=== PATIENT | male | born 1975 | race Caucasian/White ===

== ENCOUNTER 2023-02-10 17:20 | Emergency (ER) | payer BC, SELFPAY ==
--- NOTE | ~2023-02-10 | XR_ITS ---
EXAMINATION: XR wrist LT min 3V DATE: 02/10/2023 18:07 INDICATION: Left wrist deformity. Fall. TECHNIQUE: 3 views of left wrist were obtained. COMPARISON: None. FINDINGS: There is a comminuted fracture of distal radius. It is not clear if there is involvement of the distal articular surface. The main distal fracture fragment demonstrates impaction, 9 mm dorsal displacement, and dorsal angulation. There is 46 degrees dorsal tilt of the distal articular surface. Ulnar styloid is intact. 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 IMPRESSION: 1. Comminuted fracture of distal radius. Reviewed, dictated and finalized at location E. SSOR
[2023-02-10 17:22] VITALS: BP 159/83; PULSE 87; RESP 20; TEMP 36.3; O2SAT 95
--- NOTE | 2023-02-10 18:26 | ED.GENADULT ---
[facility] - General Adult General Chief complaint: Extremity Injury, Upper Stated complaint: LUE deformity Time Seen by Provider: 02/10/23 17:33 Source: patient Mode of arrival: ambulatory Limitations: no limitations History of Present Illness HPI narrative: This is a 47-year-old male who presents to the ED with chief complaint of a left wrist injury occurring just prior to arrival. Patient states that he was working on the yard when he was actually squirrel. This caused him to stumble backwards over something in the yard and he fell onto the outstretched left hand. Reports pain and deformity in the area. Denies numbness, weakness or any further site of pain or injury. Related Data Allergies Allergy/AdvReac Type Severity Reaction Status Date / Time latex Allergy Unknown Hives Verified 02/10/23 17:25 naproxen Allergy Unknown HIVES Verified 02/10/23 17:25 Review of Systems Review of Systems: All systems as dictated in [facility] Family History Family History (Updated 10/11/17 @ 14:00 by DOCTOR UNKNOWN) Father Family history of cardiovascular disease Social History Social History Smoking status: Never smoker Alcohol intake: current Exam Narrative: GENERAL: Well-appearing, well-nourished, and in no acute distress. HEAD: Normocephalic, atraumatic. EYES: PERRLA and EOMI. ENT: Nares clear, no rhinorrhea or epistaxis. Mucous membranes moist. Oropharynx without tonsillar hypertrophy exudate or other lesions. NECK: Supple. No adenopathy or masses. CHEST: No respiratory distress. Clear to auscultation. No wheezes rales or rhonchi HEART: Regular rate and rhythm. No murmur heard. Normal peripheral pulses. ABDOMEN: Soft, nontender, nondistended, normal active bowel sounds. MSK: Normal range of motion. No edema. SKIN: Warm, dry, no rash. NEURO: Alert and oriented x3. No focal deficits. PSYCH: Normal mood and affect. Course Vital Signs Vital signs: Vital Signs Temperature 97.3 F L 02/10/23 17:22 Pulse Rate 87 02/10/23 17:22 Respiratory Rate 20 02/10/23 17:22 Blood Pressure 159/83 H 02/10/23 17:22 Pulse Oximetry 95 02/10/23 17:22 Oxygen Delivery Room Air 02/10/23 17:22 Temperature 97.3 F L 02/10/23 17:22 Pulse Rate 87 02/10/23 17:22 Respiratory Rate 20 02/10/23 17:22 Blood Pressure 159/83 H 02/10/23 17:22 Pulse Oximetry 95 02/10/23 17:22 Oxygen Delivery Room Air 02/10/23 17:22 Procedures Orthopedic Fracture Reduction Fracture #1: Fracture Reduction date: 02/10/23 Fracture Reduction time: 18:00 Time Out Performed: Yes Side: left Fracture Reduction Location: radius Analgesia: hematoma block Pre-Procedure Neuro Vascular Exam: normal Technique: direct manipulation, traction/counter-traction and finger traps Post Reduction X-rays Demonstrate: other (unable to reduce) Post-reduction neuro exam: intact Post-reduction vascular exam: intact Splint Applied: Yes Patient Tolerated Procedure: well Orthopedic Splinting/Casting Injury #1: Splinting/Casting Date: 02/10/23 Splinting/Casting Time: 19:00 Side: left Upper Extremity Injury Location: wrist Upper Extremity Immobilizer: sugar tong splint Splint: customized in ED OCL: sugar tong Pre-Procedure Neuro Vascular Exam: normal Post-Procedure Neuro Vascular Exam: normal Medical Decision Making MDM Narrative Medical decision making narrative: This is a 47-year-old male who presents to the ED with chief complaint of left wrist injury. He comes to the department with left wrist deformity. Vitals are normal. Exam remarkable for the above. X-rays show comminuted fracture of distal radius. He has dorsal displacement and dorsal angulation. Hematoma block was performed with good effect. Attempted several times as long longitudinal traction and countertraction to reduce the wrist. Unsu
[2023-02-10] MEDS: HYDROcodone/acetaminophen (*CRX) 7.5-325 MG TABLET 1 TAB PO (19:01)
== END 2023-02-10 20:07 | disposition home or self-care (01) ==
PROVIDERS: Emergency Provider Physician Assistant
DX: S52.532A Colles' fracture of left radius, initial encounter for closed fracture (principal); W18.09XA Striking against other object with subsequent fall, initial encounter
CPT/HCPCS: 25600; 25605; 73110; 99285; A9270

== ENCOUNTER 2023-02-18 00:53 | Day surgery (SDC) | payer BC, SELFPAY ==
[2023-02-12 12:29] VITALS: BMI 29.1
--- NOTE | 2023-02-12 12:34 | PC.NURSE ---
Report to the Outpatient Waiting Room, entrance under the green pavilion located off [facility], at time 0900 on date 02/18/23. Planned Procedure Time: 1100. Time changes happen often and if your time is changed the preop area will call you the afternoon before. - You and your visitor will be asked to self-screen and do not enter if you have any COVID symptoms. - A mask is optional within the hospital at this time. Patients may have clear liquids (water, carbonated beverages, clear teas, apple juice) until 3 hours prior to surgery with a maximum of 20 ounces. - No food from midnight until time of surgery Take the following medications with a SIP of water the morning of surgery: PAIN PILL IF NEEDED DO NOT STOP ANY OF YOUR OTHER PRESCRIPTION MEDICATIONS PRIOR TO SURGERY ?EXCEPT THE FOLLOWING Medications to discontinue per physician: ADVIL Date to take last dose: NO MORE UNTIL AFTER SURGERY Please no make-up, nail chadian, hairspray, perfume, deodorant, or body powder the day of surgery. No jewelry (including any body piercings) or valuables the day of surgery, leave them at home. Please take a shower or bath the night before, or the morning of, surgery with an antibacterial soap. Wear comfortable, loose fitting clothing. - Jewelry must be removed prior to entering the operating room. Rings and piercings that are not removed may be cut off. - The hospital will not accept responsibility for valuables. - Please leave all valuables, including medications, at home the day of surgery. If you are going home after surgery, a licensed trolley coach driver must drive you home. - NO public transportation without another adult if you receive anesthesia. - We recommend that an adult stay with you for 24 hours following discharge. - We also recommend that you do not drive, make important decision, drink alcoholic beverages, or take any drugs that were not prescribed by your health care provider for at least 24 hours after your discharge time. Follow any additional instructions given to you from your surgeon. If you or anyone in your household have experienced Covid symptoms in the past week, please notify your surgeon or the nurse liaison at the phone number below for possible testing. Telephone instructions given to PT - BENITO HAGAN and asked if any additional questions and then verbalized understanding. Patient advised to call surgeon office or pre surgery nurse liaison [phone] if any additional questions.
[2023-02-18] VITALS (12 sets, daily range): BP systolic 114–161; BP diastolic 68–113; PULSE 60–83; RESP 12–19; TEMP 36.1–36.6; O2SAT 92–99
--- NOTE | ~2023-02-18 | XR_ITS ---
EXAMINATION: XR surgery orthopedic DATE: 02/18/2023 11:03 INDICATION: Distal left radius fracture. TECHNIQUE: 3 intraoperative fluoroscopic views of left wrist were obtained. I was not present. Fluoro scopy exposure time was 67 seconds. COMPARISON: Left wrist radiographs 02/10/2023 FINDINGS: There is a comminuted fracture of distal radius status post open reduction internal fixatio n with volar plate and screws. The main distal fracture fragment demonstrates near-anatomic alignment . IMPRESSION: 1. Comminuted fracture of distal left radius status post open reduction internal fixation. Reviewed, dictated and finalized at location A. TER MACHINE OPERATOR IMPRESSION: 1. Comminuted fracture of distal left radius status post open reduction interna l fixation.
--- NOTE | 2023-02-18 06:40 | WPDHPUPDATE1 ---
History and Physical Update Update Date/Time: 02/18/23 06:40 History and Physical has been reviewed, including an updated exam of the patient. There are NO changes in the patient's condition. Risks, benefits, and alternatives have been discussed and questions answered. Patient agrees to proceed with procedure.
[2023-02-18] MEDS: ACETAMINOPHEN 500 MG TABLET 1000 MG PO (08:19)
--- NOTE | 2023-02-18 08:23 | WPDANESEPPF ---
Anes - Initial Pre Proc Eval Procedure: Operation Date: 02/18/23 09:45 Proposed Procedures p Open Reduction Internal Fixation Left Wrist Fracture - Armando Alvarado MD s Left Carpal Tunnel Release - Armando Alvarado MD Date/Time: 02/18/23 08:23 Surgeon: Armando Alvarado MD Pre Op Diagnosis: left distal radius fx Patient Data Age: 48 Gender: M Height: 1.78 m Weight: 88.9 kg Last Vital Signs Temp 36.6 C 02/18/23 07:27 Pulse 81 02/18/23 07:27 Resp 18 02/18/23 07:27 BP 132/89 02/18/23 07:27 Pulse Ox 98 02/18/23 07:27 O2 Del Method Room Air 02/18/23 07:27 Allergies Allergy/AdvReac Type Severity Reaction Status Date / Time latex Allergy Unknown Hives Verified 02/12/23 12:28 naproxen Allergy Unknown HIVES Verified 02/12/23 12:28 Home Medications Medication Instructions Recorded Confirmed Type ibuprofen 200 mg tablet (Advil) 400 mg PO Q6H PRN Pain 02/12/23 02/12/23 History oxycodone-acetaminophen 5 mg-325 1 - 2 tablet PO Q4-6H PRN pain #40 02/17/23 Rx mg tablet (Percocet) tabs Patient hx anesthesia problems: none Family hx anesthesia problems: none Results Review: All pre-operative results and documents have been reviewed as part of the pre-operative evaluation. [facility] Past Medical History Medical History Strain of left biceps tendon Surgical History Surgical History History of repair of anterior cruciate ligament of left knee Family History Family History Father Family history of cardiovascular disease Social History Social History Smoking status: Never smoker Alcohol intake: current Drinks per week: 14 Alcohol use details: WEEKENDS Substance use: current Substance use type: marijuana Lack of Transportation: No Lack of Food: Never True Current Housing: I Have Housing Concerned About Future Housing: No Difficulty Paying Gas/Electric Bills: No Difficulty Paying for Meds: No Currently Unemployed: No Education: Trade/Vocational Certificate Difficulty w/ Childcare or Family Care: No Living arrangements: alone Spiritual care concerns: No Anes - Eval Final PreProcedure Day of Procedure 02/18/23 08:23 Patient weight: normal Heart: regular rate and rhythm Lungs: clear to auscultation Airway: Mallampati scale class II Neurological: alert and oriented Last oral intake: >/= 8 hours ASA classification: I Emergent: no Anesthetic plan: proceed Anesthesia type and monitoring: general LMA and standard monitoring Results Review: All pre-operative results and documents have been reviewed as part of the pre-operative evaluation. Informed Consent: The patient's anesthetic plan and its attendant risks and benefits were discussed with the patient/family/POA. Questions were solicited and answers provided to the satisfaction of the patient/family/POA.
[2023-02-18] MEDS: ceFAZolin 2 GM/D5W 50 ML 2 GM/50 ML BAG IVPB (09:43)
[2023-02-18] MEDS: BUPIVACAINE/EPINEPHRINE 0.5% 50 ML VIAL INFILTRATE (09:58)
--- NOTE | 2023-02-18 11:10 | W.PM.PROC2 ---
Procedure Note - Detailed Date of Procedure 02/18/23 Pre-op Diagnosis 1. Left distal radius extraarticular fracture 2. Carpal tunnel syndrome, left. Post-op Diagnosis Same Procedure Performed Left 1. Distal radius extraarticular fracture ORIF 2.Carpal tunnel release, left. Surgeon Armando Alvarado MD Anesthesia General Findings Excellent bone quality. Anatomic reduction. Standard volar plate. Description of Procedure Preoperative antibiotics were given. A general anesthetic was administered. The hand was prepped and draped in the usual sterile fashion with a well-padded tourniquet. The limb was exsanguinated and the tourniquet inflated to 250 millimeters of mercury. 6ML 0.5% Marcaine with epinephrine was injected along the incision line and at the distal forearm. A longitudinal incision was created over the flexor carpi radialis tendon. Dissection was brought down through the sheath. The pronator quadratus was identified and released off of the radius. 7 pounds of finger trap traction applied. The fracture was carefully exposed and cleared of debris. Reduction was obtained with traction and manipulation. Fluoroscopy was used to confirm anatomic reduction. The volar plate was placed on the radius and the position was confirmed. Provisional pins were placed. The dynamic cortical screw was applied. The plate was fine tuned and fluoroscopy was use to confirm that the joint would not be violated. Subsequent distal pins and screws were placed, followed by the proximal row. The wound was irrigated and closed. 3-0 Monocryl suture was used to reapproximate the pronator quadratus. The tourniquet was released and meticulous hemostasis was confirmed. The skin was closed with 3-0 Monocryl suture and a running 4-0 Monocryl suture. Steri-Strips were applied on the skin. The proposed carpal tunnel release incision was marked using typical anatomic landmarks. A longitudinal incision was taken sharply. Dissection was brought down to the transverse carpal ligament. Under direct vision the ligament was incised sharply. The proximal release was carried out with dissection scissors. The contents of the carpal canal were protected with a [place] elevator. The transverse carpal ligament was confirmed to be widely patent. The wound was closed with interrupted 3-0 Prolene suture. A sterile bulky dressing with a volar splint was applied. Patient was brought to the recovery room in stable condition. Implants Acumed standard volar wrist locking plate Estimated Blood Loss 1 Tourniquet Time 60 Pathology None sent Complications No immediate complications Condition Stable Disposition PACU [facility] Billing Surgery - Charge Forward: Surgery Billing
[2023-02-18] MEDS: LACTATED RINGERS 1,000 ML 30 ML IV CONT ×2 (11:33→12:07)
[2023-02-18] MEDS: fentaNYL CITRATE INJ (*CRX) 100 MCG/2 ML VIAL 25 MCG IV PUSH ×8 (11:57→13:45)
[2023-02-18] MEDS: oxyCODONE HCL (*CRX) 5 MG TAB IR PO (12:52)
[2023-02-18] MEDS: KETOROLAC 30 MG/ML VIAL (*BKC) IV PUSH (14:00)
[2023-02-18] MEDS: HYDROmorphone HCL INJ (*CRX) 1 MG/ML SYR 0.5 MG IV PUSH (14:31)
== END 2023-02-18 15:05 | disposition home or self-care (01) ==
PROVIDERS: Visit Provider Orthopaedic Surgery
PROC: (CPT 25575; principal; 2023-02-18 09:45)
PROC: (CPT 64721; 2023-02-18 09:45)
DX: S52.552A Other extraarticular fracture of lower end of left radius, initial encounter for closed fracture (principal); G56.02 Carpal tunnel syndrome, left upper limb; W01.0XXA Fall on same level from slipping, tripping and stumbling without subsequent striking against object, initial encounter; F12.90 Cannabis use, unspecified, uncomplicated
CPT/HCPCS: 64721; 25607; 99199; A9270; C1713; J0690; J1100; J1170; J1885; J2250; J2405; J2704; J3010; J7120

== ENCOUNTER 2023-03-31 10:19 | Outpatient (CLI) | payer BC, SELFPAY ==
--- NOTE | ~2023-03-31 | XR_ITS ---
EXAMINATION: XR wrist LT min 3V DATE: 03/31/2023 10:41 INDICATION: Unspecified fracture of the lower end of distal left radius. TECHNIQUE: 4 views of left wrist were obtained. COMPARISON: Left wrist radiograph 03/03/2023, 02/10/2023 FINDINGS: There is a comminuted fractures of distal radius. Internal fixation seen with volar plate a nd screws. The main distal fracture fragment demonstrates near-anatomic alignment. There is mild oste oarthritis of triscaphe joint, first carpometacarpal joint, first and second metacarpophalangeal join ts, and first interphalangeal joint. IMPRESSION: 1. Comminuted fracture of distal radius status post open reduction internal fixation. Reviewed, dictated and finalized at location E. IL ASSOCIATE IMPRESSION: 1. Comminuted fracture of distal radius status post open reduction internal fix ation.
== END 2023-03-31 10:20 | disposition home or self-care (01) ==
LOC: ANHIMG 10:24
PROVIDERS: Visit Provider Orthopaedic Surgery
DX: S52.502A Unspecified fracture of the lower end of left radius, initial encounter for closed fracture (principal); Z98.890 Other specified postprocedural states
CPT/HCPCS: 73110